=== PATIENT | male | born 1935 | race Caucasian/White ===

== ENCOUNTER 2017-05-21 09:35 | Observation (INO) | payer OTHER ==
[2017-05-21] MEDS ORDERED: NS 500 ML IV ONE (09:42)
--- NOTE | 2017-05-21 09:48 | CPEKG ---
Heart Rate: 70 RR Interval: 857 QRSD Interval: 148 QT Interval: 440 QTC Interval: 475 QRS [place]: -81 T Wave [place]: 85 EKG Severity - ABNORMAL ECG - EKG Impression: AFIB/FLUTTER AND VENTRICULAR-PACED RHYTHM Electronically Signed By: Tanvi Peoples 21-May-2017 15:34:09
[2017-05-21 09:55] LABS: % IMMATURE GRANULYOCYTES 0.4 % (0.0-1.1); ABSOLUTE IMMATURE GRANULOCYTES 0.02 10^3/uL (0.00-0.10); ADD DIFF? NO; ADD MORPH? NO; ADD SCAN? NO; ATYPICAL LYMPHOCYTE FLAG 20 (0-99); FRAGMENT RBC FLAG 0 (0-99); HEMATOCRIT 43.3 % (40.0-51.0); LEFT SHIFT FLG 0 (0-99); LIPEMIA HEMOLYSIS FLAG 90 (0-99); MEAN CELL HEMOGLOBIN 32.3 pg (27.9-34.1); MEAN CELL HEMOGLOBIN CONCENTR. 34.6 g/dL (32.4-36.7); MEAN CELL VOLUME 93.1 fL (81.5-99.8); MEAN PLATELET VOLUME 11.8 fL (8.7-11.7); PLATELET CLUMPS FLAG 0 (0-99); PLATELET COUNT 173 10^3/uL (150-400); RED BLOOD CELL COUNT 4.65 10^6/uL (4.40-6.38); RED CELL DISTRIBUTION WIDTH 13.3 % (11.5-15.2)
[2017-05-21 10:04] LABS: INR 1.3 (0.83-1.16); PROTIME(PATIENT) 16.2 SEC (12.0-15.0)
[2017-05-21 10:07] LABS: ANION GAP 12 mEq/L (8-16); CALCIUM 9.6 mg/dL (8.5-10.4); CARBON DIOXIDE 25 mEq/l (22-31); CHLORIDE 98 mEq/L (97-110); CREATININE 0.9 mg/dL (0.7-1.3); ETHANOL SERUM < 10 mg/dL (0-10); GLOMERULAR FILTRATION RATE > 60; GLUCOSE 93 mg/dL (70-100); POTASSIUM 4.6 mEq/L (3.5-5.2); SODIUM 135 mEq/L (134-144)
[2017-05-21 10:17] LABS: CREATINE KINASE-MB FRACTION 2.64 ng/mL (0.00-3.19); TROPONIN I < 0.012 ng/mL (0.000-0.034)
--- NOTE | 2017-05-21 11:10 | EDPHY ---
H & P Time Seen by Provider: 05/21/17 09:43 HPI/ROS: HPI Lightheaded. 82-year-old male by ambulance from the [facility]. He was seen his neurologist, Dr. Michelle Segovia, while sitting in the office he suddenly felt lightheaded and nearly lost consciousness. This was witnessed by Dr. Segovia. He does not have any complaints at this time and denies any associated signs or symptoms. At the time of the event, he denies any palpitations, chest pain, shortness of breath, sudden onset headache. He denies any loss of sensation or weakness in his extremities. He has a pacemaker. He is currently on Eliquis. ROS: Constitutional: No fever, no chills. As above. Eyes: No discharge. No changes in vision. ENT: No sore throat. No nasal congestion or rhinorrhea. Respiratory: No cough. No shortness of breath. Cardiac: No chest pain, no palpitations. Gastrointestinal: No abdominal pain, no vomiting, no diarrhea. Genitourinary: No hematuria. No dysuria or increased frequency with urination. Musculoskeletal: No back pain. No neck pain. No myalgias or arthralgias. Skin: No rashes. Neurological: No headache. No focal weakness or altered sensation. Past medical history: Pacemaker, atrial flutter/fibrillation. GERD. His boss dyer is Dr. Bourne in [place]. Social history: Here by himself. Nonsmoker. No alcohol. Physical Exam: General Appearance: Alert, no distress. This patient is responding to questions appropriately and in full sentences. This patient appears well- hydrated and well-nourished. Eyes: Pupils equal and round no pallor or injection. No lid edema, erythema or injection. Respiratory: There are no retractions, lungs are clear to auscultation with good air movement bilaterally. Cardiovascular: Regular rate and rhythm. No murmur appreciated. Pacemaker left upper chest wall Gastrointestinal: Abdomen is soft and nontender, no masses, bowel sounds normal. No focal tenderness at McBurney's point. No Yanez sign. Neurological: Motor sensory function is grossly intact. Cranial nerves are normal. Cerebellar function normal. Skin: Warm and dry, no rashes. Musculoskeletal: Neck is supple and nontender. Extremities are symmetrical. All joints range without pain or impingement. Psychiatric: No agitation. No depression. Database: EKG: EKG time is 9:46 a.m.: EKG shows a ventricular paced rhythm with probable underlying atrial flutter. Ventricular rate of 70. Appropriate discordance noted. Interpreted by me. Imaging: Procedures: Emergency department course: IV placed. He was placed on a ed special education teacher. His vital signs were reviewed. He was started on IV normal saline with 500 cc to be given over the next hour. EKG performed and reviewed by myself. 11:15 a.m., patient re-evaluated. Resting comfortably at this time. He remains him symptomatic. He has a [employer] pacemaker. We have contacted them to have this interrogated. I discussed the results of his emergency department workup. I discussed plan for admission overnight. He agrees with this. 11:20 a.m., spoke with hospitalist. Patient accepted for admission, telemetry, to the hospitalist service under the care of Dr. Olivier Herzog. They are aware that pacemaker interrogation is pending. Patient's remaining emergency department course under my care uneventful. He was admitted in stable and improved condition. Differential Diagnosis: The differential diagnosis on this patient includes but is not limited to pacemaker malfunction, ventricular tachycardia, other arrhythmia. Acute coronary syndrome, pulmonary embolism, CVA, subarachnoid hemorrhage unlikely. This represents a partial list of diagnoses considered. These considerations are based on history, physical exam, past history, reassessment and diagnostic testing. Smoking Status: Never smoked Constitutional: Initial Vital Signs Temperature (C) 36.8 C 05/21/17 09:45 Heart Rate 70 05/21/17 09:45 Respiratory Rate 16 05/21/17 09:45 Blood Pressure 119/72 05/21/17 09:45 O2 Sat (%) 97 05/21/17 09:45 O2 Delivery Mode Room Air Allergies/Adverse Reactions: No Known Allergies Allergy (Unverified 05/21/17 09:42) Home Medications: Medication Instructions Recorded Diltiazem 05/21/17 Eliquis 05/21/17 Lovastatin 05/21/17 Meclizine HCl 05/21/17 Medical Decision Making - Data Points Laboratory Results: Laboratory Results 05/21/17 09:45 05/21/17 09:45 05/21/17 05/21/17 05/21/17 09:45 09:45 09:45 WBC 5.17 10^3/uL 10^3/uL (3.80-9.50) RBC 4.65 10^6/uL 10^6/uL (4.40-6.38) Hgb 15.0 g/dL g/dL (13.7-17.5) Hct 43.3 % % (40.0-51.0) MCV 93.1 fL fL (81.5-99.8) MCH 32.3 pg pg (27.9-34.1) MCHC 34.6 g/dL g/dL (32.4-36.7) RDW 13.3 % % (11.5-15.2) Plt Count 173 10^3/uL 10^3/uL (150-400) MPV 11.8 fL H fL (8.7-11.7) Neut % (Auto) 66.6 % % (39.3-74.2) Lymph % (Auto) 19.0 % % (15.0-45.0) Hanson % (Auto) 12.6 % % (4.5-13.0) Eos % (Auto) 0.8 % % (0.6-7.6) Baso % (Auto) 0.6 % % (0.3-1.7) Nucleat RBC Rel Count 0.0 % % (0.0-0.2) Absolute Neuts (auto) 3.45 10^3/uL 10^3/uL (1.70-6.50) Absolute Lymphs (auto) 0.98 10^3/uL L 10^3/uL (1.00-3.00) Absolute Monos (auto) 0.65 10^3/uL 10^3/uL (0.30-0.80) Absolute Eos (auto) 0.04 10^3/uL 10^3/uL (0.03-0.40) Absolute Basos (auto) 0.03 10^3/uL 10^3/uL (0.02-0.10) Absolute Nucleated RBC 0.00 10^3/uL 10^3/uL (0-0.01) Immature Gran % 0.4 % % (0.0-1.1) Immature Gran # 0.02 10^3/uL 10^3/uL (0.00-0.10) PT 16.2 SEC H SEC (12.0-15.0) INR 1.30 H (0.83-1.16) APTT 31.0 SEC SEC (23.0-38.0) Sodium 135 mEq/L mEq/L (134-144) Potassium 4.6 mEq/L mEq/L (3.5-5.2) Chloride 98 mEq/L mEq/L (97-110) Carbon Dioxide 25 mEq/l mEq/l (22-31) Anion Gap 12 mEq/L mEq/L (8-16) BUN 17 mg/dL mg/dL (7-23) Creatinine 0.9 mg/dL mg/dL (0.7-1.3) Estimated GFR > 60 Glucose 93 mg/dL mg/dL (70-100) Calcium 9.6 mg/dL mg/dL (8.5-10.4) Creatine Kinase 96 IU/L IU/L (0-224) CK-MB (CK-2) Fraction 2.64 ng/mL ng/mL (0.00-3.19) Troponin I < 0.012 ng/mL ng/mL (0.000-0.034) Ethyl Alcohol < 10 mg/dL mg/dL (0-10) Medications Given: Discontinued Medications Sodium Chloride (Ns) 500 mls @ 1,000 mls/hr IV EDNOW ONE PRN Reason: Protocol Stop: 05/21/17 10:11 Last Admin: 05/21/17 09:50 Dose: 500 mls Departure - Departure Disposition: [facility] Inpatient Acute Clinical Impression: Pacemaker, Near syncope Referrals: Patient,NotPresent [Primary Care Provider] - As per Instructions
[2017-05-21] MEDS ORDERED: ONDANSETRON DISINTEGRATING 4 MG TAB PO PRN (12:18)
[2017-05-21] MEDS ORDERED: ONDANSETRON 4 MG/2 ML VIAL IVP PRN (12:18)
[2017-05-21] MEDS ORDERED: ACETAMINOPHEN 325 MG TAB PO PRN (12:18)
[2017-05-21] MEDS ORDERED: SENNOSIDES/DOCUSATE SODIUM TAB PO PRN (12:20)
[2017-05-21] MEDS ORDERED: DOCUSATE SODIUM 100 MG CAP PO PRN (12:20)
[2017-05-21] MEDS ORDERED: FAMOTIDINE 20 MG TAB PO PRN (12:20)
[2017-05-21] MEDS ORDERED: MECLIZINE HCL 25 MG TAB PO PRN (12:20)
[2017-05-21] MEDS ORDERED: IOPAMIDOL (ISOVUE 370) 100 ML BTL IV ONE (12:26)
[2017-05-21 12:43] LABS: MAGNESIUM 2.2 mg/dL (1.6-2.3)
--- NOTE | 2017-05-21 13:10 | GHP ---
[f rep st] HISTORY AND PHYSICAL DATE OF ADMISSION: 05/21/2017 CHIEF COMPLAINT: Presyncope. HISTORY OF PRESENT ILLNESS: This is an 82-year-old man with a history of atrial fibrillation with kin woo, who presents with presyncope. He was seeing his neurologist, Dr. Segovia, today at [facility] where he was being evaluated for difficulty sleeping due to nausea and dizziness when he closes his eyes. During the evaluation, while he was sitting, he had an episode of lightheadedness t hat was associated with some mild nausea. He felt as though he were about to lose consciousness. He did not, however, lose consciousness. This was not associated with any palpitations or chest pain. His technical service specialist is Dr. Vasques. He is considering surgery for spinal stenosis, thus he has had a re cent cardiac evaluation. He had a stress test, which was questionable and led to a cardiac catheteri zation, which was negative. He has since been cleared for surgery by his technical service specialist. He does not get short of breath with walking up stairs. He could walk for a few miles before he has to stop, and he has to stop due to leg pain from his spinal stenosis. PAST MEDICAL HISTORY SURGERY: 1. Atrial fibrillation and pacemaker on Eliquis and diltiazem. 2. GERD. 3. Spinal stenosis. MEDICATIONS: Please see medication reconciliation. ALLERGIES: No known drug allergies. FAMILY HISTORY: Reviewed and noncontributory. SOCIAL HISTORY: He occasionally drinks alcohol. He does not smoke. REVIEW OF SYSTEMS: A 10-point review of systems is conducted and is negative except per HPI. PHYSICAL EXAMINATION: VITAL SIGNS: Blood pressure 119/72, heart rate 70, respiration rate 16, satti ng 97% in room air, temperature 36.8. GENERAL: The patient is a pleasant man who is sitting on the side of his bed, comfortable, and fully participating. HEENT: Normocephalic, atraumatic. NECK: No carotid bruits bilaterally. CARDIAC: Regular rate and rhythm. No murmurs, rubs, or gallops. PULMO NARY: Lungs clear to auscultation bilaterally. ABDOMEN: Soft, nontender, nondistended. SKIN: No eruptions or rash. : No Calixto. NEUROLOGIC: Alert and oriented x3. He is moving all extremities. PSYCHIATRIC: Normal mood and aff ect. LABORATORY DATA: CBC is normal. INR is 1.3. Basic metabolic panel is normal. Troponins negative. Alcohol level negative. DATA: 1. I reviewed his chart and discussed this with Nery Lord. Will admit to PCU. 2. I personally reviewed and interpreted his EKG; this shows underlying atrial fibrillation. He has a V-paced rhythm. IMPRESSION AND PLAN: This is an 82-year-old man who presents with presyncope. 1. Presyncope: Pacer was interrogated and no findings to explain presyncope. I think it is reasona ble to get a CT angio of his head and neck, given his nocturnal complaints of dizziness and nausea. Will also get an echocardiogram, as he has not had one for years. Will check orthostatic vitals. Wi ll also monitor on telemetry. If these are negative, will plan on discharging him tomorrow with outp atient followup. 2. Atrial fibrillation/pacemaker: Continue his Eliquis and his diltiazem. /[id number]/MODL
--- NOTE | 2017-05-21 17:09 | ECHO ---
[email or web address] [address] Main: [phone] Fax: Transthoracic Echocardiogram Name: ROBERTA RUSH MR#: [id number] Study Date: 05/21/2017 Study Time: 01:39 PM Date of : 1935 Age: 82 year(s) Height: 182.9 cm (72 in.) Weight: 74.84 kg (165 lb.) BSA: 1.96 m2 Gender: Male Examination: Echo Indication: Near Sycope Image Quality: Contrast: Requested by: Olivier Herzog BP: / Heart Rate: Rhythm: Atrial fibrillation Indication: Near Sycope Procedure Staff Materials Tech: Tristan Bauer Reading Physician: Rajan English Requesting Provider: Conclusions: Normal size left ventricle. Normal global systolic LV function. EF is 74 %. No regional wall motion abnormality. Diastolic LV function normal for age. There is a pacemaker lead noted in the right ventricle. The left atrium is severely dilated. The right atrium is moderately to severely dilated. Mild mitral valve leaflet calcification is present. Measurements: Chambers Valvular Assessment AV/MV Valvular Assessment TV/PV Normal Normal Normal Name Value Range Name Value Range Name Value Range Ao Elenita (MM): 3.9 cm (2.2 cm-3.7 AV Vmax: 1.17 m/s (1 m/s-1.7 TR Vmax: 2.62 mm/s ( - ) cm) m/s) TR PGmax: 27 mmHg ( - ) IVSd (2D): 0.9 cm (0.6 cm-1.1 AV maxP mmHg ( - ) syst. PAP: 32 mmHg ( - ) cm) LVOT Vmax: 0.70 m/s (0.7 m/s-1.1 PV Vmax: 0.98 cm/s (0.6 m/s-0.9 LVDd (2D): 4.3 cm (4.2 cm-5.9 m/s) m/s) cm) AR (PHT): 1211 ms ( - ) PV PGmax: 4 mmHg ( - ) LVDs (2D): 2.4 cm (2.1 cm-4 MV E Vmax: 0.82 m/s ( - ) cm) MV A Vmax: 0.27 m/s ( - ) LVPWd (2D): 1.0 cm (0.6 cm-1 MV E/A: 3.04 ( - ) cm) LVEF (2D): 74 % (>=54 %) Continued Measurements: Chambers Valvular Assessment AV/MV Valvular Assessment TV/PV Name Value Name Value Name Value Patient: ROBERTA RUSH Study Date: 05/21/2017 Page 1 of 2 01:39 PM LADs Lon.7 cm MV E' Septal: 0.03 m/s CVP (est.): 5 LA Area: 23.5 cm2 MV E/E' Septal: 24.00 LA Volume: 65 ml MV E/E' Lateral: 13.10 LA Volume Index: 33.2 ml/m2 AR Vmax: 3.30 cm/s Findings: Left Ventricle: Normal size left ventricle. Normal global systolic LV function. EF is 74 %. No regional wall motion abnormality. Diastolic LV function normal for age. Right Ventricle: Normal size right ventricle. Normal RV function. There is a pacemaker lead noted in the right ventricle. Left Atrium: The left atrium is severely dilated. Right Atrium: The right atrium is moderately to severely dilated. Mitral Valve: The mitral valve is normal in appearance. Mild mitral valve leaflet calcification is present. Aortic Valve: The aortic valve is tri-leaflet. Mild aortic cusp calcification is noted. Pulmonic Valve: The pulmonic valve is normal in appearance and function. Trivial pulmonic valve regurgitation. Aorta: The aorta is normal. Pericardium: No pericardial effusion. (No Signature Object) Patient: ROBERTA RUSH Study Date: 05/21/2017 Page 2 of 2 01:39 PM [id number]
[2017-05-21] MEDS ORDERED: PRAVASTATIN SODIUM 20 MG TAB PO SCH (18:00)
[2017-05-21] MEDS ORDERED: NON-FORMULARY NEW DRUG (Lovastatin [Lovastatin] 20 MG) PO SCH (18:00)
[2017-05-21] MEDS: APIXABAN 5 MG TAB PO SCH (20:31)
[2017-05-21] MEDS ORDERED: DILTIAZEM CD 180 MG CAP PO SCH (21:00)
[2017-05-21] MEDS ORDERED: NON-FORMULARY NEW DRUG (Diltiazem Hcl [Cartia Xt 180mg] 180 MG) PO SCH (21:00)
[2017-05-21] MEDS ORDERED: MELATONIN 3 MG TAB PO PRN (22:59)
[2017-05-22 08:04] VITALS: BP 141/93; PULSE 74; RESP 25; TEMP 97.1; O2SAT 93
[2017-05-22] MEDS: APIXABAN 5 MG TAB PO SCH (08:30)
[2017-05-22] MEDS ORDERED: Alfuzosin Hcl [Alfuzosin Hcl Er] 10 MG PO SCH (09:00)
[2017-05-22] MEDS ORDERED: NON-FORMULARY NEW DRUG (Alfuzosin Hcl [Alfuzosin Hcl Er] 10 MG) PO SCH (09:00)
--- NOTE | 2017-05-22 13:00 | GDS ---
[f rep st] DISCHARGE SUMMARY FINAL DIAGNOSES: 1. Presyncope. 2. Atrial fibrillation. 3. Spinal stenosis. HOSPITAL COURSE: An 82-year-old man presented with an episode of presyncope. He felt acutely nauseo us during this episode. He does have a history of atrial fibrillation. His pacemaker was interrogat ed, which showed no arrhythmias to explain this. He has of paced rhythm 92% of the time with underly ing atrial fibrillation. Echocardiogram showed no pathology to explain his presyncope. 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 Though, it did not show anything to explain presyncope. I think it is probably a vagal reaction. He has been inve stigated for nocturnal and occasional nausea by a neurologist. I have given a prescription for Zofra n to take at night to see if this helps his nausea. Notably recently [facility], where he had a catheterization which was negative, and was cleared by his ship unloader as well. He is discharged in stable condition to follow up with his outpatient emiliano peres. /[id number]/MODL
--- NOTE | 2017-05-22 16:18 | ASDISCHSUM ---
Discharge Information Plan Status:Home with No Needs Medically Cleared to Leave:05/22/2017 Discharge Date:05/22/2017 10:09 AM CM D/C Disposition: ADT D/C Disposition:Home, Routine, Self-Care Projected Discharge Date:05/22/2017 12:00 AM Transportation at D/C: Discharge Delay Reason: Follow-Up Date:05/22/2017 12:00 AM Discharge Slot: Final Diagnosis: Placement Information Patient Contact Information Contact Name:CARLY Relationship:Kary Address: Work Phone: City: [facility] Phone: State/[employer] Code: Email: Financial Information Financial Class: Primary Plan Desc:MEDICARE OUTPATIENT Primary Plan Number:[id number] Secondary Plan Desc: Secondary Plan Number:[id number] Assessment Information Intervention Information Intervention Type:*KENNEDI-Adeline Date of Service:05/22/2017 04:05 PM Patient Type:Observation Staff Member:Aliza Edmonds Hours: Discipline: Severity: Comment:
== END 2017-05-22 10:09 | disposition home or self-care (01) ==
LOC: F2W 13:10
PROVIDERS: ADMIT Student in an Organized Health Care Education/Training Program; ATTEND Student in an Organized Health Care Education/Training Program
DX: R55 Syncope and collapse (principal); I48.91 Unspecified atrial fibrillation; Z95.0 Presence of cardiac pacemaker
CPT/HCPCS: 70450; 70496; 70498; 93005; 93306; 96360; 99285; G0378; Q9967; G0480